=== PATIENT | female | born 1950 | race Caucasian/White ===

== ENCOUNTER 2021-01-07 08:32 | Day surgery (SDC) | payer MEDICARE, OTHER ==
[~2021-01-07] VITALS: Ht 152.4 cm; Wt 91.0 kg
[2021-01-07] MEDS ORDERED: DIPHENHYDRAMINE 50 MG/ML, 1ML IVPush ONE (09:00)
[2021-01-07] MEDS ORDERED: LIDOCAINE-MPF 1%, 5ML ONE (09:16)
[2021-01-07 09:32] LABS: BASOPHILS % (AUTO) 1 % (0-1); EOSINOPHILS % (AUTO) 4 % (1-7); LYMPHOCYTES % (AUTO) 34 % (22-44); MEAN CORPUSCULAR HEMOGLOBIN 33.5 pg (27.0-34.8); MEAN CORPUSCULAR HGB CONC 34.1 g/dL (32.4-35.8); MONOCYTES % (AUTO) 9 % (2-9); NEUTROPHILS % (AUTO) 53 % (42-75); PLATELET COUNT 209 x10^3/uL (130-400); RED BLOOD COUNT 4.39 x10^6/uL (3.82-5.3); RED CELL DISTRIBUTION WIDTH 15.1 % (9.6-15.2)
[2021-01-07 09:43] LABS: INTERNATIONAL NORMALIZED RATIO 1.24 (0.93-1.1); PROTHROMBIN TIME 13.2 Seconds (9.6-11.5)
[2021-01-07] MEDS ORDERED: ALEN70TA77 PO (09:43)
[2021-01-07] MEDS ORDERED: POTASS (09:43)
[2021-01-07] MEDS ORDERED: OXYC5CAP2 PO (09:43)
[2021-01-07] MEDS ORDERED: FURO-92 PO (09:43)
[2021-01-07] MEDS ORDERED: LOPE-114 PO (09:43)
[2021-01-07] MEDS ORDERED: ONDA4TAB13 SL (09:43)
[2021-01-07] MEDS ORDERED: LEVE250T28 PO (09:43)
[2021-01-07] MEDS ORDERED: EPIN0.3P3 IM (09:43)
[2021-01-07] MEDS ORDERED: CICL6.6S3 EXT (09:43)
[2021-01-07] MEDS ORDERED: IBUP-1902 PO (09:43)
[2021-01-07] MEDS ORDERED: DIPH25CA61 PO (09:43)
[2021-01-07] MEDS ORDERED: POTASSIUM (09:43)
[2021-01-07 09:44] LABS: ANION GAP 7 mmol/L (5-15); CALCIUM 8.4 mg/dL (8.5-10.1); CHLORIDE 116 mmol/L (98-107)
[2021-01-07] MEDS ORDERED: ASPI-1026 PO (09:46)
[2021-01-07] MEDS ORDERED: TIZA4TAB2 PO (09:46)
[2021-01-07] MEDS ORDERED: DIPHENHYDRAMINE 50 MG/ML, 1ML ONE (10:02)
[2021-01-07 10:03] VITALS: BP 139/76
[2021-01-07] MEDS ORDERED: MIDAZOLAM 1 MG/ML, 2ML ONE (10:31)
[2021-01-07] MEDS ORDERED: FENTANYL PF 100 MCG/2ML ONE (10:32)
[2021-01-07] MEDS ORDERED: LIDOCAINE 2%, 20ML ONE (10:32)
== END 2021-01-07 12:53 | disposition home or self-care (01) ==
LOC: CACL 08:32
PROVIDERS: ATTEND Internal Medicine Cardiovascular Disease
DX: I27.0 Primary pulmonary hypertension (principal); K74.60 Unspecified cirrhosis of liver; Z88.1 Allergy status to other antibiotic agents; Z88.8 Allergy status to other drugs, medicaments and biological substances; Z88.2 Allergy status to sulfonamides; Z91.041 Radiographic dye allergy status; Z79.899 Other long term (current) drug therapy; Z79.82 Long term (current) use of aspirin; Z87.891 Personal history of nicotine dependence
CPT/HCPCS: 36415; 80048; 85025; 85610; 93451; 99156; C1894; J1200; J2250; J3010